=== PATIENT | male | born 1955 | race Caucasian/White ===

== ENCOUNTER → 2018-02-27 15:50 | Outpatient (CLI) | payer OTHER, SELFPAY ==
--- NOTE | 2018-02-27 15:51 | DI.RAD.S_ITS ---
PROCEDURE: XR FEMUR RT MIN 2V INDICATIONS: Right leg pain TECHNIQUE: 4 views of the femur were acquired. COMPARISON: None. FINDINGS: Bones: Mild right hip and right knee joint osteoarthritis is seen with joint space narrowing and subchondral sclerosis. No fractures or dislocations. No suspicious bony lesions. Soft tissues: No suspicious soft tissue calcifications or masses. IMPRESSION: Mild right hip and right knee joint osteoarthritis. No femoral fracture or dislocation. Dictated by: Александр Clark M.D. on 02/27/2018 at 16:19 Approved by: Александр Clark M.D. on 02/27/2018 at 16:20
--- NOTE | 2018-02-27 15:51 | DI.RAD.S_ITS ---
PROCEDURE: XR LUMBAR SPINE 2-3V INDICATIONS: Right leg pain TECHNIQUE: 3 views of the lumbar spine were acquired. COMPARISON: [facility], , -SPINE 2-3 VIEWS, 03/17/2015, 16:34. FINDINGS: Bones: 5 [id number] vertebrae are present. There is normal bony alignment. No vertebral body compression fractures. Mild degenerative endplate changes and bilateral facet arthrosis at L4-5 and L5-S1 levels are seen. No suspicious bony lesions. Soft tissues: Overlying bowel gas pattern is normal. No suspicious soft tissue calcifications. IMPRESSION: Mild degenerative disc disease in lower lumbar spine. No acute compression fracture or traumatic spondylolisthesis. Dictated by: Александр Clark M.D. on 02/27/2018 at 16:19 Approved by: Александр Clark M.D. on 02/27/2018 at 16:19
--- NOTE | 2018-02-27 15:51 | DI.RAD.S_ITS ---
PROCEDURE: XR HIP W PEL IF DONE RT 2V INDICATIONS: Right leg pain TECHNIQUE: AP pelvis with lateral view(s) of the right hip(s). COMPARISON: None. FINDINGS: Bones: No fractures or dislocations. Pelvic ring appears intact. No suspicious bony lesions. Soft tissues: The visualized bowel gas pattern is normal. No suspicious soft tissue calcifications. IMPRESSION: No right hip fracture or dislocation. No evidence of avascular necrosis. Dictated by: Александр Clark M.D. on 02/27/2018 at 16:18 Approved by: Александр Clark M.D. on 02/27/2018 at 16:19
== END ==
PROVIDERS: Family Provider Physician Assistant; PCP Physician Assistant; Visit Provider Physician Assistant
DX: M79.604 Pain in right leg (principal); M54.5 Low back pain; M16.11 Unilateral primary osteoarthritis, right hip; M17.11 Unilateral primary osteoarthritis, right knee; M51.36 Other intervertebral disc degeneration, lumbar region; M51.37 Other intervertebral disc degeneration, lumbosacral region
CPT/HCPCS: 72100; 73502; 73552

== ENCOUNTER → 2018-03-27 11:54 | Outpatient (CLI) | payer OTHER, SELFPAY ==
[2018-03-27 12:45] LABS: BUN Creatinine Ratio 15.7 (6-22); Blood Urea Nitrogen 11 mg/dL (9-20); Calcium 9.4 mg/dL (8.4-10.2); Carbon Dioxide 27 mmol/L (22-32); Chloride 97 mmol/L (98-107); Estimated Glomerular Filt Rate > 60.0 mL/min (>60); Glucose 142 mg/dL (80-110); HEMOLYSIS < 15 (0-50); Potassium 4.3 mmol/L (3.4-5.1); Sodium 136 mmol/L (137-145)
== END ==
PROVIDERS: Family Provider Physician Assistant; PCP Physician Assistant; Visit Provider Physician Assistant
DX: E11.9 Type 2 diabetes mellitus without complications (principal); E78.5 Hyperlipidemia, unspecified; I10 Essential (primary) hypertension
CPT/HCPCS: 36415; 80048; 83036

== ENCOUNTER → 2018-11-13 08:41 | Outpatient (CLI) | payer OTHER, SELFPAY ==
[2018-11-13 09:22] LABS: Alanine Aminotransferase 19 IU/L (21-72); Albumin Globulin Ratio 1.5 (1.0-2.8); Alkaline Phosphatase 62 U/L (38-126); Aspartate Aminotransferase 24 IU/L (17-59); BUN Creatinine Ratio 22.9 (6-22); Bilirubin Total 0.4 mg/dL (0.2-1.3); Blood Urea Nitrogen 16 mg/dL (9-20); Calcium 8.8 mg/dL (8.4-10.2); Carbon Dioxide 27 mmol/L (22-32); Chloride 102 mmol/L (98-107); Cholesterol 131 mg/dL (140-199); Estimated Glomerular Filt Rate > 60.0 mL/min (>60); Globulin 2.7 g/dL (1.7-4.1); Glucose 194 mg/dL (80-110); HDL Cholesterol 60 mg/dL (40-60); HEMOLYSIS < 15 (0-50); LDL Cholesterol Calculated 63 mg/dL (<100); Potassium 4.4 mmol/L (3.4-5.1); Sodium 136 mmol/L (137-145); Total Protein 6.7 g/dL (6.3-8.2); Triglycerides 41 mg/dL (35-150)
[2018-11-13 10:01] LABS: Hemoglobin A1C% w Est Avg Glu 7.5 % (4.0-6.0)
[2018-11-13 10:03] LABS: Creatinine Urine Random 172.2 mg/dL
[2018-11-13 10:24] LABS: Microalbumi Creatinin Ratio Ur 3.4 ug/mg CR (<30); Microalbumin Urine Random < 0.6 mg/dL (0-1.6)
== END ==
PROVIDERS: Family Provider Physician Assistant; PCP Physician Assistant; Visit Provider Internal Medicine Cardiovascular Disease
DX: E78.5 Hyperlipidemia, unspecified (principal); I10 Essential (primary) hypertension; E11.9 Type 2 diabetes mellitus without complications; E78.2 Mixed hyperlipidemia; Z79.4 Long term (current) use of insulin
CPT/HCPCS: 36415; 80053; 80061; 82043; 82570; 83036

== ENCOUNTER → 2018-11-14 16:16 | Outpatient (CLI) | payer OTHER, SELFPAY ==
[2018-11-14 17:21] LABS: Prostate Specific Antigen Scrn 1.74 ng/mL (0.1-4.0)
== END ==
PROVIDERS: Family Provider Physician Assistant; PCP Physician Assistant; Visit Provider Physician Assistant
DX: Z12.5 Encounter for screening for malignant neoplasm of prostate (principal)
CPT/HCPCS: G0103

== ENCOUNTER → 2019-11-17 09:30 | Outpatient (CLI) | payer OTHER, SELFPAY ==
--- NOTE | 2019-11-17 | DI.RAD.S_ITS ---
PROCEDURE: XR HAND RT 2V INDICATIONS: PAIN IN RT AND LEFT HAND TECHNIQUE: 2 views of the hand(s) acquired. COMPARISON: [facility], CR, XR HAND LT 2V, 11/17/2019, 9:26. FINDINGS: Bones: No fractures or dislocations. Carpal bones are normally aligned. No suspicious bony lesions. Degenerative changes are seen throughout, which are most prominent involving the 1st carpometacarpal joint. Milder degenerative changes are seen elsewhere. Soft tissues: No suspicious soft tissue calcifications. IMPRESSION: Unremarkable hand plain films for age. Dictated by: Pee Billy M.D. on 11/17/2019 at 11:12 Approved by: Pee Billy M.D. on 11/17/2019 at 11:12
--- NOTE | 2019-11-17 | DI.RAD.S_ITS ---
PROCEDURE: XR HAND LT 2V INDICATIONS: PAIN IN RT AND LEFT HAND TECHNIQUE: 2 views of the hand(s) acquired. COMPARISON: [facility], CR, XR HAND RT 2V, 11/17/2019, 9:26. FINDINGS: Bones: No fractures or dislocations. Carpal bones are normally aligned. No suspicious bony lesions. Degenerative changes are seen, which are most prominent involving the radial aspect of the carpus. Soft tissues: No suspicious soft tissue calcifications. IMPRESSION: Plain film study within normal limits for age, with degenerative changes noted. Dictated by: Pee Billy M.D. on 11/17/2019 at 11:10 Approved by: Pee Billy M.D. on 11/17/2019 at 11:11
== END ==
PROVIDERS: Family Provider Physician Assistant; PCP Physician Assistant; Referring Provider Physician Assistant; Visit Provider Physician Assistant
DX: M79.644 Pain in right finger(s) (principal); M79.645 Pain in left finger(s)
CPT/HCPCS: 73120

== ENCOUNTER → 2019-12-08 09:48 | Outpatient (CLI) | payer OTHER, SELFPAY ==
[2019-12-08 12:25] LABS: Alanine Aminotransferase 13 IU/L (<50); Albumin Globulin Ratio 1.5 (1.0-2.8); Alkaline Phosphatase 55 U/L (38-126); Aspartate Aminotransferase 23 IU/L (17-59); BUN Creatinine Ratio 20.5 (6-22); Bilirubin Total 0.6 mg/dL (0.2-1.3); Blood Urea Nitrogen 16 mg/dL (9-20); Calcium 9.1 mg/dL (8.4-10.2); Carbon Dioxide 30 mmol/L (22-32); Chloride 102 mmol/L (98-107); Cholesterol 150 mg/dL (140-199); Estimated Glomerular Filt Rate > 60.0 mL/min (>60); Globulin 2.6 g/dL (1.7-4.1); Glucose 131 mg/dL (80-110); HDL Cholesterol 65 mg/dL (40-60); HEMOLYSIS < 15 (0-50); LDL Cholesterol Calculated 76 mg/dL (<100); Potassium 4.4 mmol/L (3.4-5.1); Sodium 137 mmol/L (137-145); Total Protein 6.6 g/dL (6.3-8.2); Triglycerides 44 mg/dL (35-150)
[2019-12-08 12:28] LABS: Hemoglobin A1C% w Est Avg Glu 7.5 % (4.0-6.0)
[2019-12-08 13:19] LABS: Creatinine Urine Random 109.9 mg/dL
[2019-12-08 13:35] LABS: Microalbumin Urine Random < 0.6 mg/dL (0-1.6)
== END ==
PROVIDERS: Family Provider Physician Assistant; PCP Physician Assistant; Referring Provider Physician Assistant; Visit Provider Physician Assistant
DX: E11.9 Type 2 diabetes mellitus without complications (principal); I10 Essential (primary) hypertension; E78.5 Hyperlipidemia, unspecified
CPT/HCPCS: 36415; 80053; 80061; 82043; 82570; 83036

== ENCOUNTER → 2020-06-21 09:32 | Outpatient (CLI) | payer OTHER, SELFPAY ==
[2020-06-21 11:00] LABS: Hemoglobin A1C% w Est Avg Glu 7.6 % (4.0-6.0)
[2020-06-21 11:15] LABS: BUN Creatinine Ratio 20.3 (6-22); Blood Urea Nitrogen 16 mg/dL (9-20); Calcium 9.4 mg/dL (8.4-10.2); Carbon Dioxide 29 mmol/L (22-32); Chloride 102 mmol/L (98-107); Cholesterol 136 mg/dL (140-199); Estimated Glomerular Filt Rate > 60.0 mL/min (>60); Glucose 131 mg/dL (80-110); HDL Cholesterol 66 mg/dL (40-60); HEMOLYSIS < 15 (0-50); LDL Cholesterol Calculated 63 mg/dL (<100); Potassium 4.6 mmol/L (3.4-5.1); Sodium 137 mmol/L (137-145); Triglycerides 35 mg/dL (35-150)
== END ==
PROVIDERS: Family Provider Physician Assistant; PCP Physician Assistant; Referring Provider Physician Assistant; Visit Provider Physician Assistant
DX: E78.5 Hyperlipidemia, unspecified (principal); E11.9 Type 2 diabetes mellitus without complications
CPT/HCPCS: 36415; 80048; 80061; 83036

== ENCOUNTER → 2021-09-25 08:55 | Outpatient (CLI) | payer OTHER, SELFPAY ==
[2021-09-25 10:52] LABS: Alanine Aminotransferase 19 IU/L (<50); Albumin 3.9 g/dL (3.5-5.0); Albumin Globulin Ratio 1.6 (1.0-2.8); Alkaline Phosphatase 53 U/L (38-126); Aspartate Aminotransferase 26 IU/L (17-59); BUN Creatinine Ratio 23.9 (6-22); Bilirubin Total 0.5 mg/dL (0.2-1.3); Blood Urea Nitrogen 17 mg/dL (9-20); Calcium 9.4 mg/dL (8.4-10.2); Carbon Dioxide 28 mmol/L (22-32); Chloride 102 mmol/L (98-107); Cholesterol 156 mg/dL (140-199); Estimated Glomerular Filt Rate > 60 mL/min (>60); Globulin 2.5 g/dL (1.7-4.1); Glucose 97 mg/dL (80-110); HDL Cholesterol 72 mg/dL (40-60); HEMOLYSIS < 15 (0-50); Hemoglobin A1C% w Est Avg Glu 7.7 % (4.0-6.0); LDL Cholesterol Calculated 75 mg/dL (<100); Potassium 4.8 mmol/L (3.4-5.1); Sodium 137 mmol/L (137-145); Total Protein 6.4 g/dL (6.3-8.2); Triglycerides 46 mg/dL (35-150)
[2021-09-25 10:57] LABS: Microalbumin Urine Random < 0.6 mg/dL (0-1.6)
== END ==
PROVIDERS: Family Provider Physician Assistant; PCP Physician Assistant; Referring Provider Internal Medicine Cardiovascular Disease; Visit Provider Internal Medicine Cardiovascular Disease
DX: E11.9 Type 2 diabetes mellitus without complications (principal); E78.5 Hyperlipidemia, unspecified
CPT/HCPCS: 36415; 80053; 80061; 82043; 82570; 83036

== ENCOUNTER → 2021-11-09 16:00 | Outpatient (CLI) | payer OTHER, SELFPAY ==
--- NOTE | 2021-11-09 | DI.ECHO.S_ITS ---
[place] [facility]---------+ [facility] +---------+ : : [address] : : : : [id number] : : : : Phone: [phone]+ Echocardiogram Report + + :Name: SCOTT GARCIA Study Date: 11/09/2021 Height: 67 in : :[facility] ReadingLocation: Weight: 178 lb : : Gender: Male BSA: 1.9 m2 : :: 1955 Age: 66 yrs BP: 162/101 mmHg: :Reason For Study: Tricuspid Valve - Regurgitation : :Ordering Physician: Kurtis, : :Lee Performed By: Cam Sue : :Referring: Lee Hull : + + Interpretation Summary Normal echo study. Procedure: A two-dimensional transthoracic echocardiogram with color flow and Doppler was performed. The study quality was technically adequate. There is no prior echocardiogram noted for this patient. Left Ventricle: The left ventricle is normal in size and wall thickness. The ejection fraction is estimated to be 55-60%. There are no focal wall motion abnormalities. Diastolic parameters suggest probable normal left ventricular diastolic function and normal filling pressures. Right Ventricle: The right ventricle is normal in size and function. Atria: Both atria are normal in size. The interatrial septum grossly appears intact with no obvious evidence for an atrial septal defect. Mitral Valve: The mitral valve is normal in structure and function. There is no mitral regurgitation noted. Aortic Valve: The aortic valve is normal in structure and function. No aortic regurgitation is present. Tricuspid Valve: The tricuspid valve is normal in structure and function. There is trace tricuspid regurgitation. Pulmonary artery pressures cannot be estimated because of the lack of a measurable TR jet velocity. Pulmonic Valve: The pulmonic valve is normal in structure and function. There is mild pulmonic regurgitation. Great Vessels: The aortic root is normal size. The dimensions of the ascending aorta are normal. The IVC is of normal diameter and collapses greater than 50% with a sniff. This suggests a low right atrial pressure of 3 mm Hg. Pericardium/ Pleura There is no pericardial effusion. There is no pleural effusion. MMode/2D Measurements & Calculations LVIDd: 4.4 cm LVOT diam: 2.1 cm LVIDs: 2.8 cm Ao root diam: 2.8 cm FS: 36.4 % asc Aorta Diam: 2.8 cm IVSd: 0.80 cm LVPWd: 0.90 cm LV slater. diameter/BSA (cm/m^2): 2.3 LV sys. diameter/BSA (cm/m^2): 1.5 LA dimension: 2.7 cm RA long axis: 4.1 cm LA A2 area: 9.4 cm2 LA A4 area: 13.3 cm2 LA length (vol): 3.7 cm LA vol: 28.7 ml LA vol index: 14.9 ml/m2 TAPSE_phl: 2.2 cm Doppler Measurements & Calculations Ao V2 max: 100.0 cm/sec LVOT Max Chris: 90.1 cm/sec Ao V2 mean: 73.3 cm/sec LV V1 max P.2 mmHg Ao max P.0 mmHg LV V1 VTI: 17.3 cm Ao mean P.0 mmHg HENRI(I,D): 3.1 cm2 Ao V2 VTI: 19.3 cm HENRI(V,D): 3.1 cm2 sev ratio: 0.90 HENRI indexed to BSA (cm^2/m^2): 1.6 MV E max chris: 62.6 cm/sec SV(LVOT): 59.9 ml MV A max chris: 72.4 cm/sec MV E/A: 0.86 Med Peak E' Chris: 7.5 cm/sec E/E' med: 8.4 Lat Peak E' Chris: 8.7 cm/sec E/E' lat: 7.2 E/e' average: 7.8 MV dec time: 0.27 sec AV VR_phl: 0.90 MV P1/2t-pr_phl: 80.0 msec HENRI(VTI)/BSA_phl: 1.6 Electronically signed by: Jorgito Mendez on Reading Physician:11/09/2021 05:30 PM
== END ==
PROVIDERS: Family Provider Physician Assistant; PCP Physician Assistant; Referring Provider Nurse Practitioner Family; Visit Provider Nurse Practitioner Family
DX: I37.1 Nonrheumatic pulmonary valve insufficiency (principal)
CPT/HCPCS: 93306

== ENCOUNTER → 2021-11-27 08:21 | Outpatient (CLI) | payer OTHER, SELFPAY ==
[2021-11-27 11:05] LABS: Alanine Aminotransferase 18 IU/L (<50); Albumin 3.8 g/dL (3.5-5.0); Albumin Globulin Ratio 1.6 (1.0-2.8); Alkaline Phosphatase 58 U/L (38-126); Aspartate Aminotransferase 24 IU/L (17-59); BUN Creatinine Ratio 18.8 (6-22); Bilirubin Total 0.4 mg/dL (0.2-1.3); Blood Urea Nitrogen 13 mg/dL (9-20); Carbon Dioxide 30 mmol/L (22-32); Chloride 101 mmol/L (98-107); Cholesterol 152 mg/dL (140-199); Estimated Glomerular Filt Rate > 60 mL/min (>60); Globulin 2.4 g/dL (1.7-4.1); Glucose 138 mg/dL (80-110); HDL Cholesterol 75 mg/dL (40-60); HEMOLYSIS < 15 (0-50); LDL Cholesterol Calculated 69 mg/dL (<100); Potassium 4.9 mmol/L (3.4-5.1); Sodium 135 mmol/L (137-145); Total Protein 6.2 g/dL (6.3-8.2); Triglycerides 41 mg/dL (35-150)
== END ==
PROVIDERS: Family Provider Physician Assistant; Referring Provider Nurse Practitioner Family; Visit Provider Nurse Practitioner Family
DX: E78.5 Hyperlipidemia, unspecified (principal)
CPT/HCPCS: 36415; 80053; 80061

== ENCOUNTER → 2022-02-23 15:59 | Outpatient (CLI) | payer OTHER, SELFPAY | PROVIDERS: Family Provider Physician Assistant; PCP Nurse Practitioner Family; Referring Provider Nurse Practitioner Family; Visit Provider Nurse Practitioner Family | DX: E11.9 Type 2 diabetes mellitus without complications (principal) | CPT/HCPCS: 36415; 83036 ==

== ENCOUNTER → 2022-07-21 16:01 | Outpatient (CLI) | payer OTHER, SELFPAY ==
--- NOTE | 2022-07-21 | DI.RAD.S_ITS ---
PROCEDURE: XR CERVICAL SPINE 2V OR 3V INDICATIONS: PAIN TECHNIQUE: 3 view(s) of the cervical spine were acquired. COMPARISON: None. FINDINGS: Bones: No fractures or dislocations to the T1 level. Degenerative endplate changes and loss of disc height are noted throughout cervical spine. The lateral masses of C1 appear intact on the odontoid view. No suspicious bony lesions. Soft tissues: No prevertebral soft tissue swelling. IMPRESSION: [id number] degenerative disc disease throughout cervical spine. No acute fracture or dislocation. Dictated by: Александр Clark M.D. on 07/22/2022 at 14:14 Approved by: Александр Clark M.D. on 07/22/2022 at 14:23
--- NOTE | 2022-07-21 | DI.RAD.S_ITS ---
PROCEDURE: XR LUMBAR SPINE 2-3V INDICATIONS: PAIN TECHNIQUE: 3 views of the lumbar spine were acquired. COMPARISON: [facility], , XR LUMBAR SPINE 2-3V, 02/27/2018, 16:01. FINDINGS: Bones: 5 [id number] vertebrae are present. There is straightening of normal lumbar lordosis. Mild degenerative endplate changes throughout lumbar spine is seen. No vertebral body compression fractures. No suspicious bony lesions. Soft tissues: Overlying bowel gas pattern is normal. No suspicious soft tissue calcifications. IMPRESSION: Mild degenerative disc disease in lumbar spine. No acute compression fracture or spondylolisthesis. Dictated by: Александр Clark M.D. on 07/22/2022 at 14:35 Approved by: Александр Clark M.D. on 07/22/2022 at 14:41
--- NOTE | 2022-07-21 | DI.RAD.S_ITS ---
PROCEDURE: XR HIP W PEL IF DONE RT 2V INDICATIONS: PAIN TECHNIQUE: AP pelvis with lateral view(s) of the right hip(s). COMPARISON: [facility], , XR HIP W PEL IF DONE RT 2V, 02/27/2018, 16:01. FINDINGS: Bones: Right worse than left bilateral hip joint osteoarthritic changes are seen with superior joint space narrowing and subchondral sclerosis. No evidence of avascular necrosis of femoral head. No fractures or dislocations. Pelvic ring appears intact. No suspicious bony lesions. Soft tissues: The visualized bowel gas pattern is normal. No suspicious soft tissue calcifications. IMPRESSION: Right worse than left bilateral hip joint osteoarthritis. No pelvic or hip fracture. No evidence of avascular necrosis. Dictated by: Александр Clark M.D. on 07/22/2022 at 14:41 Approved by: Александр Clark M.D. on 07/22/2022 at 14:42
--- NOTE | 2022-07-21 | DI.RAD.S_ITS ---
PROCEDURE: XR THORACIC SPINE 2V INDICATIONS: PAIN TECHNIQUE: 3 views of the thoracic spine were acquired. COMPARISON: None. FINDINGS: Bones: No fractures or dislocations. No suspicious bony lesions. Mild degenerative endplate changes and loss of disc height in mid to lower thoracic spine is seen. 12 pairs of ribs are noted, and appear intact where visualized. Soft tissues: No paravertebral stripe thickening. IMPRESSION: Mild degenerative disc disease in mid to lower thoracic spine. No acute compression fracture or spondylolisthesis. Dictated by: Александр Clark M.D. on 07/22/2022 at 14:23 Approved by: Александр Clark M.D. on 07/22/2022 at 14:35
== END ==
PROVIDERS: Family Provider Physician Assistant; PCP Nurse Practitioner Family; Referring Provider Nurse Practitioner Family; Visit Provider Physician Assistant
DX: M50.30 Other cervical disc degeneration, unspecified cervical region (principal); M51.34 Other intervertebral disc degeneration, thoracic region; M51.36 Other intervertebral disc degeneration, lumbar region; M16.0 Bilateral primary osteoarthritis of hip; M54.51 Vertebrogenic low back pain; M25.551 Pain in right hip
CPT/HCPCS: 72040; 72070; 72100; 73502

== ENCOUNTER → 2022-09-10 08:13 | Outpatient (CLI) | payer OTHER, SELFPAY ==
[2022-09-10 10:35] LABS: Alanine Aminotransferase 23 IU/L (<50); Albumin 3.8 g/dL (3.5-5.0); Albumin Globulin Ratio 1.7 (1.0-2.8); Alkaline Phosphatase 52 U/L (38-126); Aspartate Aminotransferase 26 IU/L (17-59); BUN Creatinine Ratio 15.8 (6-22); Bilirubin Total 0.3 mg/dL (0.2-1.3); Blood Urea Nitrogen 12 mg/dL (9-20); Carbon Dioxide 29 mmol/L (22-32); Chloride 101 mmol/L (98-107); Cholesterol 152 mg/dL (140-199); Estimated Glomerular Filt Rate > 60 mL/min (>60); Globulin 2.3 g/dL (1.7-4.1); Glucose 146 mg/dL (80-110); HDL Cholesterol 74 mg/dL (40-60); HEMOLYSIS < 15 (0-50); LDL Cholesterol Calculated 66 mg/dL (<100); Potassium 4.7 mmol/L (3.4-5.1); Sodium 135 mmol/L (137-145); Total Protein 6.1 g/dL (6.3-8.2); Triglycerides 59 mg/dL (35-150)
[2022-09-10 10:42] LABS: Creatinine Urine Random 58.4 mg/dL; Microalbumin Urine Random < 0.6 mg/dL (0-1.6)
[2022-09-11 05:25] LABS: Labcorp Hemoglobin (Hb) A1c 7.9 % (4.8-5.6)
== END ==
PROVIDERS: Family Provider Physician Assistant; PCP Physician Assistant; Referring Provider Physician Assistant; Visit Provider Physician Assistant
DX: E11.9 Type 2 diabetes mellitus without complications (principal); Z13.6 Encounter for screening for cardiovascular disorders
CPT/HCPCS: 36415; 80053; 80061; 82043; 82570; 83036

== ENCOUNTER → 2023-02-07 16:04 | Outpatient (CLI) | payer OTHER, SELFPAY ==
[2023-02-07 17:53] LABS: Hemoglobin A1C% w Est Avg Glu 7.8 % (4.0-6.0)
== END ==
PROVIDERS: Family Provider Physician Assistant; PCP Physician Assistant; Referring Provider Physician Assistant; Visit Provider Physician Assistant
DX: E11.65 Type 2 diabetes mellitus with hyperglycemia (principal)
CPT/HCPCS: 36415; 83036

== ENCOUNTER → 2023-04-06 16:26 | Outpatient (CLI) | payer OTHER, SELFPAY ==
[2023-04-06 18:36] LABS: Prostate Specific Antigen 2.49 ng/mL (0.10-4.00)
== END ==
LOC: LAB 16:29
PROVIDERS: Family Provider Physician Assistant; PCP Physician Assistant; Referring Provider Physician Assistant; Visit Provider Physician Assistant
DX: Z12.11 Encounter for screening for malignant neoplasm of colon (principal); Z12.5 Encounter for screening for malignant neoplasm of prostate
CPT/HCPCS: 36415; 84153

== ENCOUNTER → 2023-05-12 15:16 | Outpatient (CLI) | payer OTHER, SELFPAY ==
--- NOTE | 2023-05-24 17:05 | DIAB.INIT ---
Initial Diabetes Education Assessment Name: Cory Pool Date: 05/12/23 Time: 330-440p Dx: Type II Diabetes Cory presents for initial DM visit. Reports PMH of DM x 20 years. Reports a goal to get HgA1c under 7.5%. Last labs indicate 7.8% 01/2023. Taking dm meds appropriately per report: Metformin, Aspart and Toujeo. Seems to have a good grasp on preventing lows with consistent meal/snack timing. Reports symptoms of lows as sweaty, fatigue, weakness, confused. No recent lows per CGM time in range. Denies any previous DM ed. Diet recall: 4a: coffee black 730-830a: palacios, sausage, eggs 12p: salad, tuna, cheese +/- 1/2c beans OR meatloaf x 4oz with 3/4c pasta sn: nothing or kind bar 630p: 1 bowl of beef soup with 1c potatoes within Kirstin: water 24-32oz, coffee 36oz States he has eaten this way for 1-2 years. Overall, moderate to low carb intake. Could increase fiber with more veggies and/or whole grains. Physical Activity: Hip and back pain have been barriers. Has been going to weekly PT x 9 months. Wants to get back to biking in the summer. Plans to return to gym this weekend. Reports [id number] steps per day. Self-Monitoring Blood Glucose: Wears FSL3. Difficulty connecting to device today. States he often wakes with in range BG of 95-130mg/dl but may go up to 250 or 300mg/dl after eating. Erika indicates almost within the 75% in range goal. Some very high elevations after meals. May need Aspart for these meals. Currently only taking mealtime insulin with dinner. Might benefit from additional Dm med, ?oral, in order to help reduce BG and support continued weight loss with limited inc in insulin. TIR: 6% >250 21% 181-250 73% 70-180-- in range 0%low GMI 7.2% Diabetes Medications: Metformin 1000mg BID Toujeo 35u AM Aspart pre dinner 4u Pertinent Labs: hgA1c: 01/2022 8% 08/2022 7.9 01/2023 7.8% Past Medical History: (Last Updated 08/01/18 @ 10:05 by Martina Akhtar DO) Controlled type 2 diabetes mellitus without complication (07/29/05) Depression Essential hypertension with goal blood pressure less than 130/80 (06/18/05) Hyperlipidemia (06/18/05) Intervention: This participant was very receptive. Provided appropriate educational handouts. Discussed the following topics: Completed intake assessment. Discussed barriers to care. Pathophysiology of type 2 diabetes HgA1c, its correlation to blood glucose numbers, and rationale for goal Potential for Dm medications Impact of physical activity Strategies to increase veggie intake General recommended servings for carbohydrates at meals and snacks BG goals Created SMART goals for patient self-care and success. Goals: Incorporate veggies at meals Start gym this weekend safely Walk 2x per week Follow-up: PAULA LEO follow-up in 2-3 weeks. Overall, Cory seems to be following a lower carb diet. He plans to increase his physical activity. Seems he may need additional diabetes medication coverage for meals that are still going up to 250-300mg/dl with lower carb options. He is hoping the increase in activity will make more of a difference. Will continue to evaluate. Haylee Bedolla, MPH, RDN, CDCES Certified Diabetes Care and Bucket Operator P: [phone] Thank you for this referral
== END ==
PROVIDERS: Family Provider Physician Assistant; PCP Physician Assistant; Referring Provider Internal Medicine; Visit Provider Internal Medicine
DX: E11.9 Type 2 diabetes mellitus without complications (principal); Z79.84 Long term (current) use of oral hypoglycemic drugs; Z71.3 Dietary counseling and surveillance; Z79.4 Long term (current) use of insulin
CPT/HCPCS: G0108

== ENCOUNTER → 2023-08-18 12:02 | Outpatient (CLI) | payer OTHER, SELFPAY ==
--- NOTE | 2023-08-18 12:04 | DI.RAD.S_ITS ---
PROCEDURE: XR RIBS LT MIN 3V W CXR1V INDICATIONS: eval TECHNIQUE: 2 views of the ribs were acquired, along with a single view chest. COMPARISON: None. FINDINGS: Surgical changes and devices: None. Bones and chest wall: Multiple minimally displaced and mildly displaced left lower posterior lateral rib fractures involving the 8th through 11th ribs including segmental fractures of the 9th rib. No suspicious bony lesions. Overlying soft tissues appear unremarkable. Lungs and pleura: Small left pleural effusion. No pneumothorax is seen. Mild atelectasis of the adjacent left lung base. Mediastinum: Mediastinal contours appear normal. Heart size is normal. IMPRESSION: 1. Mildly displaced left 8th through 11th rib fractures, including segmental fractures of the 9th rib. 2. Small left pleural effusion. No definite pneumothorax. Approved by: Jamie Lambert M.D. on 08/18/2023 at 12:36
--- NOTE | 2023-08-18 12:04 | DI.RAD.S_ITS ---
PROCEDURE: XR CERVICAL SPINE 4V OR 5V INDICATIONS: AP, lateral, flexion, extension TECHNIQUE: 5 views of the cervical spine were acquired. COMPARISON: [facility], CR, XR CERVICAL SPINE 2V OR 3V, 07/21/2022, 16:45. FINDINGS: Bones: No fractures or dislocations to the T1 level. No suspicious bony lesions. There is reduced range of motion between flexion and extension, with preserved normal bony alignment. Diffuse facet arthrosis, most prominent at C5-6, C6-7 and C7-T1. Moderate disc height loss at C5-6, C6-7. Mild disc height loss at remaining levels. Soft tissues: Prevertebral soft tissues are normal in thickness. IMPRESSION: Mild to moderate, multilevel degenerative disc disease and diffuse facet arthrosis. Reduced range of motion with flexion and extension. Dictated by: Torey Knox M.D. on 08/18/2023 at 12:29 Approved by: Torey Knox M.D. on 08/18/2023 at 12:30
== END ==
PROVIDERS: Family Provider Physician Assistant; PCP Physician Assistant; Referring Provider Physician Assistant Surgical; Visit Provider Physician Assistant Surgical
DX: S22.42XA Multiple fractures of ribs, left side, initial encounter for closed fracture (principal); J90 Pleural effusion, not elsewhere classified; M47.812 Spondylosis without myelopathy or radiculopathy, cervical region; M50.322 Other cervical disc degeneration at C5-C6 level; M54.6 Pain in thoracic spine; R29.2 Abnormal reflex; W19.XXXA Unspecified fall, initial encounter
CPT/HCPCS: 71101; 72050

== ENCOUNTER → 2024-07-21 08:06 | Outpatient (CLI) | payer OTHER, SELFPAY ==
[2024-07-21 09:12] LABS: Add Manual Diff / Slide Review NO; Basophils Absolute Auto 100 /uL (0-100); Basophils Percent Auto 0.9 % (0-2); Eosinophils Absolute Auto 200 /uL (0-450); Eosinophils Percent Auto 3.2 % (2-4); Hematocrit 41.2 % (41-53); Hemoglobin 14.2 g/dL (13.5-17.5); Lymphocytes Absolute Auto 1700 /uL (1100-4500); Lymphocytes Percent Auto 30.1 % (25-40); Mean Corpuscular HGB Conc 34.4 % (30-36); Mean Corpuscular Hemoglobin 31.9 PG (26-34); Mean Corpuscular Volume 92.5 fL (80-100); Monocytes Absolute Auto 600 /uL (0-900); Monocytes Percent Auto 11.1 % (3-14); Neutrophils Absolute Auto 3100 /uL (1500-7000); Neutrophils Percent Auto 54.7 % (50-75); Platelet Count 246 X10^3/uL (150-400); Red Blood Cell Count 4.45 X10^6/uL (4.5-5.9); Red Cell Distribution Width 13.4 % (11.6-14.8); White Blood Cell Count 5.6 X10^3/uL (4.5-11.0)
[2024-07-21 09:15] LABS: Appearance Urine UA CLEAR; Bilirubin Urine UA NEGATIVE (NEGATIVE); Color Urine UA YELLOW; Glucose Urine UA NEGATIVE (Negative); Ketones Urine UA TRACE (NEGATIVE); Leukocyte Esterase Urine UA NEGATIVE (NEGATIVE); Nitrite Urine UA NEGATIVE (Negative); Occult Blood Urine UA NEGATIVE (Negative); Protein Urine UA NEGATIVE (Negative); Specific Gravity Urine UA 1.015 (1.000-1.035); Urobilinogen Urine UA 0.2 E.U./dL (0.2)
[2024-07-21 09:20] LABS: Urine Volume 10mL (spun)
[2024-07-21 09:21] LABS: Bacteria Urine None Seen; Culture Indicated Urine Cult Not Indicated; RBC Urine None Seen (0-5/HPF); Squamous Epithelial Cell Urine None Seen (0-5/HPF); WBC Urine None Seen (0-5/HPF)
[2024-07-21 09:24] LABS: Hemoglobin A1C% w Est Avg Glu 6.9 % (4.0-6.0)
[2024-07-21 09:39] LABS: Microalbumin Urine Random 0.6 mg/dL (0-1.6)
[2024-07-21 09:46] LABS: Erythrocyte Sedimentation Rate 10 MM/HR (0-15)
[2024-07-21 10:40] LABS: Alanine Aminotransferase 22 IU/L (<50); Albumin 3.8 g/dL (3.5-5.0); Albumin Globulin Ratio 1.7 (1.0-2.8); Alkaline Phosphatase 53 U/L (38-126); Aspartate Aminotransferase 31 IU/L (17-59); BUN Creatinine Ratio 14.8 (6-22); Bilirubin Total 0.3 mg/dL (0.2-1.3); Blood Urea Nitrogen 12 mg/dL (9-20); Calcium 9.3 mg/dL (8.4-10.2); Carbon Dioxide 29 mmol/L (22-32); Chloride 104 mmol/L (98-107); Cholesterol 157 mg/dL (140-199); Creatine Kinase 76 U/L (55-170); Estimated Glomerular Filt Rate > 60 mL/min (>60); Globulin 2.3 g/dL (1.7-4.1); Glucose 109 mg/dL (70-99); HDL Cholesterol 84 mg/dL (40-60); HEMOLYSIS < 15 (0-50); LDL Cholesterol Calculated 65 mg/dL (<100); Potassium 4.9 mmol/L (3.4-5.1); Sodium 137 mmol/L (137-145); Total Protein 6.1 g/dL (6.3-8.2); Triglycerides 40 mg/dL (35-150)
[2024-07-21 11:11] LABS: Prostate Specific Antigen 3.16 ng/mL (0.10-4.00)
== END ==
LOC: LAB 08:08
PROVIDERS: Family Provider Physician Assistant; PCP Student in an Organized Health Care Education/Training Program; Referring Provider Student in an Organized Health Care Education/Training Program; Visit Provider Student in an Organized Health Care Education/Training Program
DX: Z12.11 Encounter for screening for malignant neoplasm of colon (principal); Z12.5 Encounter for screening for malignant neoplasm of prostate; Z13.6 Encounter for screening for cardiovascular disorders; E11.65 Type 2 diabetes mellitus with hyperglycemia; Z79.899 Other long term (current) drug therapy
CPT/HCPCS: 36415; 80053; 80061; 81001; 82043; 82550; 82570; 83036; 84153; 85025; 85651

== ENCOUNTER → 2024-07-23 16:20 | Outpatient (CLI) | payer OTHER, SELFPAY ==
[2024-07-23 18:29] LABS: Occult Blood 1 Negative (Negative)
[2024-07-23 18:30] LABS: Occult Blood 2 Negative (Negative); Occult Blood 3 Negative (Negative)
== END ==
PROVIDERS: Family Provider Physician Assistant; PCP Student in an Organized Health Care Education/Training Program; Referring Provider Student in an Organized Health Care Education/Training Program; Visit Provider Student in an Organized Health Care Education/Training Program
DX: Z12.11 Encounter for screening for malignant neoplasm of colon (principal); Z12.0 Encounter for screening for malignant neoplasm of stomach; Z13.6 Encounter for screening for cardiovascular disorders; Z79.899 Other long term (current) drug therapy; E11.65 Type 2 diabetes mellitus with hyperglycemia
CPT/HCPCS: 82270